=== PATIENT | male | born 1990 | race Caucasian/White ===

== ENCOUNTER → 2024-06-08 | Outpatient (CLI) | payer BC, OTHER ==
[2024-06-08 13:39] LABS: Partial Thromboplastin Time 25.3 sec (22.0-30.0); Prothrombin Time 11.3 sec (10.0-12.5)
[2024-06-08 21:39] LABS: Basophils # (A) 0.05 X 10*3/uL (0.00-0.10); Basophils % (A) 0.8 %; Eosinophils # (A) 0.09 X 10*3/uL (0.04-0.35); Eosinophils % (A) 1.4 %; HCT 50.2 % (39.6-50.0); HGB 16.2 g/dL (13.0-17.0); Lymphocytes # (A) 2.71 X 10*3/uL (0.90-5.00); Lymphocytes % (A) 40.9 %; MCH 25.6 pg (27.0-32.0); MCHC 32.3 g/dL (32.0-37.0); MCV 79.4 FL (80.0-97.0); Mean Platelet Volume 9.9 FL (9.5-12.2); Monocytes # (A) 0.35 X 10*3/uL (0.20-1.00); Monocytes % (A) 5.3 %; NRBC Per 100 WBC 0 X 10*3/uL (0.00-0.01); Neutrophils # (A) 3.41 X 10*3/uL (1.80-7.70); Neutrophils % (A) 51.3 %; Platelet Count 282 X 10*3/uL (140-440); RBC 6.32 X 10*6/uL (4.40-5.60); RDW 14.6 % (11.5-14.5); WBC 6.63 X 10*3/uL (4.50-10.00)
[2024-06-08 21:44] LABS: Hepatitis C IgG Antibody Nonreactive (Nonreactive)
[2024-06-08 21:57] LABS: % Iron Saturation 19.01 (15.00-50.00); ALT 22 U/L (10-49); AST 21 U/L (14-35); Albumin 4.6 g/dL (3.8-4.9); Albumin/Globulin Ratio 1.64 Ratio (1.60-3.17); Alkaline Phosphatase 102 U/L (41-126); Blood Urea Nitrogen 14.3 mg/dL (9.0-27.0); C Reactive Protein <0.30 mg/dL (0.00-0.80); Calcium 9.4 mg/dL (8.7-10.3); Carbon Dioxide 21.2 mmol/L (21.6-31.8); Chloride 108 mmol/L (96-109); Chol/HDL Ratio 7.65 Ratio; Creatine Kinase 97 U/L (35-257); GGT 46 U/L (0-73); Globulin 2.8 g/dL (1.6-3.3); Glucose 91 mg/dL (70-110); Iron 73 UG/DL (65-175); LDL Cholesterol,Calculated 90.2 mg/dL (0.0-131.0); Magnesium 2.2 mg/dL (1.5-2.4); Potassium 4.4 mmol/L (3.5-5.5); Prostate Specific Antigen 1.18 ng/mL (0.000-2.500); Rheumatoid Factor, Qnt <15 IU/mL (0-15); Sodium 142 mmol/L (135-145); T4, Free (Free Thyroxine) 1.19 ng/dL (0.80-1.80); Total Bilirubin 0.3 mg/dL (0.3-1.2); Total Iron Binding Capacity 384 UG/DL (228-460); Total Protein 7.4 g/dL (6.2-8.2)
[2024-06-08 23:32] LABS: Erythrocyte Sedimentation Rate 10 mm/Hr (0-15)
[2024-06-11 11:43] LABS: Angiotensin-1 Converting Enz. 68 U/L (8-52)
[2024-06-11 17:19] LABS: Cyclic Citrull Pep IgG Unit <1.5 U/mL (<=3.9); Cyclic Citrullinated Pep IgG Negative
== END | disposition home or self-care (01) ==
LOC: LABWHC1 12:15
PROVIDERS: ATTEND Family Medicine
DX: M79.10 Myalgia, unspecified site (principal); G62.9 Polyneuropathy, unspecified; R53.1 Weakness
CPT/HCPCS: 36415; 80053; 80061; 82164; 82306; 82550; 82607; 82746; 82977; 83540; 83550; 83655; 83735; 84153; 84439; 84443; 85025; 85379; 85610; 85652; 85730; 86038; 86140; 86200; 86431; 86592; 86618; 86803

== ENCOUNTER → 2024-06-12 | Outpatient (CLI) | payer BC, OTHER | END | disposition home or self-care (01) | LOC: LABWHC1 14:37 | PROVIDERS: ATTEND Family Medicine | DX: M79.10 Myalgia, unspecified site (principal); G60.9 Hereditary and idiopathic neuropathy, unspecified; R53.1 Weakness | CPT/HCPCS: 36415; 83655 ==

== ENCOUNTER → 2024-08-03 | Outpatient (CLI) | payer BC, OTHER ==
[2024-08-03 11:11] LABS: Potassium 4.2 mmol/L (3.5-5.1)
[2024-08-03 11:36] LABS: African American GFR (CKD) 87 (>60 ml/min/1.73 sqM); Anion Gap 11 mmol/L; Blood Urea Nitrogen 12 mg/dL (9-20); Calcium 9.6 mg/dL (8.4-10.2); Carbon Dioxide 26 mmol/L (22-30); Chloride 104 mmol/L (98-107); Creatine Kinase 86 U/L (55-170); Glucose 79 mg/dL (74-99); Magnesium 2.2 mg/dL (1.6-2.3); Non-African American GFR(CKD) 76 (>60 ml/min/1.73 sqM); Sodium 141 mmol/L (137-145)
== END | disposition home or self-care (01) ==
LOC: LABWHC1 09:48
PROVIDERS: ATTEND Internal Medicine
DX: M62.838 Other muscle spasm (principal)
CPT/HCPCS: 36415; 80048; 82330; 82550; 83735

== ENCOUNTER 2024-10-06 06:21 | Emergency (ER) | payer BC, OTHER ==
[2024-10-06 06:25] VITALS: RESP 18
--- NOTE | 2024-10-06 06:41 | ED ---
General Adult HPI - General Chief complaint: Back Pain/Injury Stated complaint: Right flank pain Time Seen by Provider: 10/06/24 06:27 Source: patient, RN notes reviewed Mode of arrival: ambulatory Limitations: no limitations - History of Present Illness Initial comments: 33year old male presents to the ED for complaints of acute right sided back pain that radiates to his RLQ and through the groin area on that side. He states that the pain started about 2 hours ago and woke him up from sleep. He mentions that he has been feeling nauseous but denies any vomiting. He denies any changes in bowel movements and urination.. He reports still having chest pain but says that this isn't new. - Related Data Previous Rx's Medication Instructions Recorded Ibuprofen [Motrin] 800 mg PO Q6HR PRN #20 tab 01/19/22 Ketorolac [Toradol] 10 mg PO Q8HR #15 tab 10/06/24 Ondansetron Odt [Zofran Odt] 4 mg PO Q8HR PRN #10 tab 10/06/24 Tamsulosin [Flomax] 0.4 mg PO DAILY #7 cap 10/06/24 Allergies Allergy/AdvReac Type Severity Reaction Status Date / Time No Known Allergies Allergy Verified 10/06/24 06:25 Review of Systems ROS Statement: Those systems with pertinent positive or pertinent negative responses have been documented in the HPI. ROS Other: All systems not noted in ROS Statement are negative. Past Medical History Past Medical History: No Reported History History of Any Multi-Drug Resistant Organisms: None Reported Past Surgical History: No Surgical Hx Reported Past Psychological History: Schizophrenia Smoking Status: Current every day smoker, Vaper Past Alcohol Use History: Rare Past Drug Use History: None Reported General Exam Limitations: no limitations General appearance: alert, in no apparent distress Head exam: Present: atraumatic, normocephalic, normal inspection Respiratory exam: Present: normal lung sounds bilaterally. Absent: respiratory distress, wheezes, rales, rhonchi, stridor Cardiovascular Exam: Present: regular rate, normal rhythm, normal heart sounds. Absent: systolic murmur, diastolic murmur, rubs, gallop, clicks Back exam: Present: normal inspection, CVA tenderness (R) Course Vital Signs 10/06/24 06:23 Temperature 98 F Pulse Rate 90 Respiratory 18 Rate Blood Pressure 151/105 O2 Sat by Pulse 95 Oximetry Medical Decision Making - Medical Decision Making Was pt. sent in by a medical professional or institution ([facility] Durbin, NONPROFIT DIRECTOR, urgent care, hospital, or senior living...) When possible be specific @ -No Did you speak to anyone other than the patient for history (EMS, parent, family, police, friend...)? What history was obtained from this source @ -No Did you review nursing and triage notes (agree or disagree)? Why? @ -I reviewed and agree with nursing and triage notes Were old charts reviewed (outside hosp., previous admission, EMS record, old EKG, old radiological studies, urgent care reports/EKG's, senior living records)? Report findings @ -No old charts were reviewed Differential Diagnosis (chest pain, altered mental status, abdominal pain women, abdominal pain men, vaginal bleeding, weakness, fever, dyspnea, syncope, headache, dizziness, GI bleed, back pain, seizure, CVA, palpatations, mental health, musculoskeletal)? @ -Differential Abdominal Pain Men: Appendicitis, cholecystitis, diverticulosis, ischemic bowel, pancreatitis, hepatitis, UTI, gastroenteritis, AAA, incarcerated hernia, bowel obstruction, constipation, inflammatory bowel, hepatitis, peptic ulcer disease, splenic infarction, perforated viscus, testicular torsion, this is not meant to be an all-inclusive list EKG interpreted by me (3pts min.). @ -None X-rays interpreted by me (1pt min.). @ -None done CT interpreted by me (1pt min.). @ -CT of the abdomen pelvis showing 3 mm UVJ stone with mild hydronephrosis U/S interpreted by me (1pt. min.). @ -None done What testing was considered but not performed or refused? (CT, X-rays, U/S, labs)? Why? @ -None What meds were considered but not given or refused? Why? @ -None Did you discuss the management of the patient with other professionals (pr ofessionals i.e. DK Durbin, NONPROFIT DIRECTOR, lab, RT, psych nurse, social worker psychiatric, computer technology instructor, teacher, chief technology officer, human services case manager)? Give summary @ -No Was smoking cessation discussed for >3mins.? @ -No Was critical care preformed (if so, how long)? @ -No Were there social determinants of health that impacted care today? How? (Homelessness, low income, unemployed, alcoholism, drug addiction, transportation, low edu. Level, literacy, decrease access to med. care, longterm, rehab)? @ -No Was there de-escalation of care discussed even if they declined (Discuss DNR or withdrawal of care, Hospice)? DNR status @ -No What co-morbidities impacted this encounter? (DM, HTN, Smoking, COPD, CAD, Cancer, CVA, ARF, Chemo, Hep., AIDS, mental health diagnosis, sleep apnea, morbid obesity)? @ -None Was patient admitted / discharged? Hospital course, mention meds given and route, prescriptions, significant lab abnormalities, going to OR and other pertinent info. @ -Discharge patient is found to have 3 mm UVJ stone. Patient's pain is improved. Patient will be discharged with Flomax Toradol Tylenol codeine Zofran return parameters discussed. Undiagnosed new problem with uncertain prognosis? @ -No Drug Therapy requiring intensive monitoring for toxicity (Heparin, Nitro, Insulin, Cardizem)? @ -No Were any procedures done? @ -No Diagnosis/symptom? @ -Ureteral calculus Acute, or Chronic, or Acute on Chronic? @ -Acute Uncomplicated (without systemic symptoms) or Complicated (systemic symptoms)? @ -Uncomplicated Side effects of treatment? @ -No Exacerbation, Progression, or Severe Exacerbation? @ -No Poses a threat to life or bodily function? How? (Chest pain, USA, SC, pneumonia, PE, COPD, DKA, ARF, appy, cholecystitis, CVA, Diverticulitis, Homicidal, Suicidal, threat to staff... and all critical care pts) @ -No - Lab Data Result diagrams: 10/06/24 06:54 10/06/24 06:54 Lab Results 10/06/24 10/06/24 10/06/24 Range/Units 06:54 06:54 06:54 WBC 8.58 (4.50-10.00) 10*3/uL RBC 5.93 H (4.40-5.60) 10*6/uL Hgb 16.1 (13.0-17.0) g/dL Hct 46.6 (39.6-50.0) % MCV 78.6 L (80.0-97.0) fL MCH 27.2 (27.0-32.0) pg MCHC 34.5 (32.0-37.0) g/dL Plt Count 300 (140-440) 10*3/uL MPV 9.6 (9.5-12.2) fL Immature Gran % (Auto) 0.2 % Neutrophils % 53.8 % Lymphocytes % 37.6 % Monocytes % 6.6 % Eosinophils % 1.3 % Basophils % 0.5 % Immature Gran # 0.02 (0.00-0.04) 10*3/uL Neutrophils # 4.61 (1.80-7.70) 10*3/uL Lymphocytes # 3.23 (0.90-5.00) 10*3/uL Monocytes # 0.57 (0.20-1.00) 10*3/uL Eosinophils # 0.11 (0.04-0.35) 10*3/uL Basophils # 0.04 (0.00-0.10) 10*3/uL Sodium 140 (137-145) mmol/L Potassium 4.1 (3.5-5.1) mmol/L Chloride 110 H (98-107) mmol/L Carbon Dioxide 20 L (22-30) mmol/L Anion Gap 10 mmol/L BUN 14 (9-20) mg/dL Creatinine 1.35 H (0.66-1.25) mg/dL Est GFR (CKD-EPI)AfAm 80 (>60 ml/min/1.73 sqM) Est GFR (CKD-EPI)NonAf 69 (>60 ml/min/1.73 sqM) Glucose 112 H (74-99) mg/dL Calcium 9.5 (8.4-10.2) mg/dL Total Bilirubin 0.6 (0.2-1.3) mg/dL AST 28 (17-59) U/L ALT 23 (4-49) U/L Alkaline Phosphatase 91 (38-126) U/L Total Protein 7.3 (6.3-8.2) g/dL Albumin 4.5 (3.5-5.0) g/dL Lipase 198 (23-300) U/L Urine Color Yellow Urine Appearance Clear (Clear) Urine pH 6.5 (5.0-8.0) Ur Specific [place] 1.026 (1.001-1.035) Urine Protein Negative (Negative) Urine Glucose (UA) Negative (Negative) Urine Ketones Negative (Negative) Urine Blood Small H (Negative) Urine Nitrite Negative (Negative) Urine Bilirubin Negative (Negative) Urine Urobilinogen <2.0 (<2.0) mg/dL Ur Leukocyte Esterase Negative (Negative) Urine RBC 21 H (0-5) /hpf Urine WBC 1 (0-5) /hpf Urine Mucus Rare H (None) /hpf Disposition Clinical Impression: Ureteral calculus Disposition: HOME SELF-CARE Condition: Stable Instructions (If sedation given, give patient instructions): Kidney Stones (ED) Additional Instructions: Please return to the Emergency Department if symptoms worsen or any other concerns. Prescriptions: Tamsulosin [Flomax] 0.4 mg PO DAILY #7 cap Ketorolac [Toradol] 10 mg PO Q8HR #15 tab Ondansetron Odt [Zofran Odt] 4 mg PO Q8HR PRN #10 tab PRN Reason: Nausea Is patient prescribed a controlled substance at d/c from ED?: No Referrals: Chrissy Lowe MD [Primary Care Provider] - 1-2 days Benny Rubio MD [STAFF PHYSICIAN] - 1-2 days Time of Disposition: 08:06
[2024-10-06] MEDS: ONDANSETRON 4 MG/2 ML VIAL IVP STA (06:54)
[2024-10-06] MEDS: SODIUM CHLORIDE 0.9% 1,000 ML IV SCH (06:54)
[2024-10-06] MEDS: KETOROLAC 15 MG/ML 1 ML VIAL IVP STA ×2 (06:56→07:36)
[2024-10-06] MEDS: HYDROmorphone 0.5 MG/0.5 ML SYRINGE IVP STA ×2 (06:57→08:22)
[2024-10-06 07:11] LABS: Basophils # (A) 0.04 10*3/uL (0.00-0.10); Basophils % (A) 0.5 %; Eosinophils # (A) 0.11 10*3/uL (0.04-0.35); Eosinophils % (A) 1.3 %; HCT 46.6 % (39.6-50.0); HGB 16.1 g/dL (13.0-17.0); Lymphocytes # (A) 3.23 10*3/uL (0.90-5.00); Lymphocytes % (A) 37.6 %; MCH 27.2 pg (27.0-32.0); MCHC 34.5 g/dL (32.0-37.0); MCV 78.6 fL (80.0-97.0); Mean Platelet Volume 9.6 fL (9.5-12.2); Monocytes # (A) 0.57 10*3/uL (0.20-1.00); Monocytes % (A) 6.6 %; Neutrophils # (A) 4.61 10*3/uL (1.80-7.70); Neutrophils % (A) 53.8 %; Platelet Count 300 10*3/uL (140-440); RBC 5.93 10*6/uL (4.40-5.60); RDW 14.1 % (11.5-14.5); WBC 8.58 10*3/uL (4.50-10.00)
[2024-10-06 07:36] LABS: ALT 23 U/L (4-49); African American GFR (CKD) 80 (>60 ml/min/1.73 sqM); Albumin 4.5 g/dL (3.5-5.0); Anion Gap 10 mmol/L; Appearance,Urine Clear (Clear); Bilirubin,Urine Negative (Negative); Blood Urea Nitrogen 14 mg/dL (9-20); Blood,Urine Small (Negative); Calcium 9.5 mg/dL (8.4-10.2); Carbon Dioxide 20 mmol/L (22-30); Chloride 110 mmol/L (98-107); Color,Urine Yellow; Glucose 112 mg/dL (74-99); Glucose,Urine (UA) Negative (Negative); Ketones,Urine Negative (Negative); Leukocyte Esterase,Urine Negative (Negative); Lipase 198 U/L (23-300); Mucus,Urine Rare /hpf; Nitrite,Urine Negative (Negative); Non-African American GFR(CKD) 69 (>60 ml/min/1.73 sqM); PH, Urine 6.5 (5.0-8.0); Protein,Urine Negative (Negative); RBC,Urine 21 /hpf (0-5); Sodium 140 mmol/L (137-145); Specific Gravity,Urine 1.026 (1.001-1.035); Total Bilirubin 0.6 mg/dL (0.2-1.3); Total Protein 7.3 g/dL (6.3-8.2); Urobilinogen,Urine <2.0 mg/dL (<2.0); WBC,Urine 1 /hpf (0-5)
[2024-10-06 07:41] LABS: AST 28 U/L (17-59); Alkaline Phosphatase 91 U/L (38-126); Potassium 4.1 mmol/L (3.5-5.1)
--- NOTE | 2024-10-06 07:47 | CT ---
EXAMINATION TYPE: CT abdomen pelvis wo con DATE OF EXAM: 10/06/2024 COMPARISON: NONE CLINICAL INDICATION: Male, 33 years old with history of flank pain, right flank pain, TECHNIQUE: CT scan of the abdomen and pelvis is performed , patient injected with mL of ., (none if empty) Oral contrast used: without Oral Contrast (none if empty) CT DLP: 812.4 mGycm, Automated exposure control for dose reduction was used. FINDINGS: Within the limitations of a noncontrast study, the following observations are made. LUNG BASES: No significant abnormality is appreciated. LIVER/GB: The visualized liver is heterogeneously hypodense consistent with diffuse fatty infiltrativ e hepatocellular disease. There is simple 9 mm thin-walled cyst anteriorly in the liver noted.. PANCREAS: No significant abnormality is seen. SPLEEN: No significant abnormality is seen. ADRENALS: No significant abnormality is seen. KIDNEYS: No left-sided renal calculi or hydronephrosis. There is a 3 mm calculus at right UVJ axial image 151 causing mild right-sided hydronephrosis. BOWEL: No significant abnormality is seen. PROSTATE/SEMINAL VESICLES: No gross abnormality seen. LYMPH NODES: No greater than 1cm abdominal or pelvic lymph nodes are appreciated. OSSEOUS STRUCTURES: No significant abnormality is seen. OTHER: Small fat-containing umbilical hernia. IMPRESSION: There is 3 mm calculus at right UVJ causing mild right-sided hydronephrosis. [facility] Saniya Lombardo, , 10/06/2024 7:45 AM
[2024-10-06] MEDS: ACET/COD 300 MG/30 MG STARTER PACK 6 TAB BTL PO STA (08:22)
[2024-10-06 08:31] VITALS: BP 124/78; PULSE 68; TEMP 97.8
== END 2024-10-06 08:33 | disposition home or self-care (01) ==
LOC: EC 06:21
DX: N13.2 Hydronephrosis with renal and ureteral calculous obstruction (principal); F17.290 Nicotine dependence, other tobacco product, uncomplicated
CPT/HCPCS: 36415; 80053; 83690; 85025; 81001; 74176; 99284; 96374; 96375; 96376; 96361; J2405; J1885; J1171